=== PATIENT | female | born 1990 | race African-American/Black ===

== ENCOUNTER 2016-09-24 11:39 | Emergency (ER) | payer OTHER ==
[2016-09-24 11:59] VITALS: BMI 26.4
[2016-09-24] MEDS ORDERED: SODIUM CHLORIDE 0.9% 1000 ML INFUS.BAG IV ONE (13:13)
[2016-09-24] MEDS ORDERED: FOLIC ACID INJECTION - 1 MG, THIAMINE HCL 100 MG, MULTIVIT INJECTION ADULT 10 ML in SOD... IVPB ONE (13:18)
--- NOTE | 2016-09-24 13:23 | PDOC ---
History of Present Illness - General Chief Complaint: Lightheaded Stated Complaint: HEADACHE/DIZZY,13 WEEKS Time Seen by Provider: 09/24/16 12:15 - History of Present Illness Initial Comments: 09/24/16 13:15 CHIEF COMPLAINT: dizziness, headache HISTORY OF PRESENT ILLNESS: 26 yo F (LMP 06/23, 13 weeks preg) with hx of anemia presents to ED with dizziness and headache. Patient states she has had an intermittent headache for the last 4 days, "but the dizziness is always there." She reports that she had her blood drawn at the [facility] office and was told that her "blood was really low." She also reports nausea and vomiting in the mornings for the last month. She denies any vaginal bleeding or abnormal discharge, denies any abdominal pain or cramping. No recent travel or sick contacts. PAST MEDICAL HISTORY: Denies past medical history FAMILY HISTORY: Denies SOCIAL HISTORY:Denies tobacco, alcohol, illicit drug use. SURGICAL HISTORY: Denies ALLERGIES: No known drug allergies REVIEW OF SYSTEMS General/Constitutional: Denies fever or chills. Denies weakness, weight change. HEENT: Denies change in vision. Denies ear pain or discharge. Denies sore throat. Cardiovascular: Denies chest pain or shortness of breath. Respiratory: Denies cough, wheezing, or hemoptysis. Gastrointestinal: Denies nausea, vomiting, diarrhea or constipation. Denies rectal bleeding. Genitourinary: Denies dysuria, frequency, or change in urination. Musculoskeletal: Denies joint or muscle swelling or pain. Denies neck or back pain. Skin and breasts: Denies rash or easy bruising. Neurologic: "Dizziness" x 4 days. Denies loss of consciousness, or loss of sensation. PHYSICAL EXAM General Appearance: Well-appearing, appropriately dressed. No apparent distress , no intoxication. HEENT: EOMI, PERRLA, normal ENT inspection, normal voice, TMs normal, pharynx normal. No conjunctival pallor. No photophobia, scleral icterus. Respiratory/Chest: Lungs CTAB. Cardiovascular: RRR. S1, S2. Gastrointestinal/Abdominal: Normal bowel sounds. Abdomen soft, non-distended. No tenderness or rebound tenderness. No organomegaly, pulsatile mass, guarding , hernia, hepatomegaly, splenomegaly. Musculoskeletal/Extremities: Normal inspection. FROM of all extremities, normal capillary refill. Pelvis Stable. No CVA tenderness. No tenderness to extremities, pedal edema, swelling, erythema or deformity. Integumentary: Appropriate color, dry, warm. 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 Fully oriented, alert. Appropriate mood/affect. Motor strength 5/5. No appreciable EOM palsy, facial droop or sensory deficit. Past History - Past Medical History Allergies/Adverse Reactions: Allergies Allergy/AdvReac Type Severity Reaction Status Date / Time No Known Allergies Allergy Verified 09/24/16 11:56 Home Medications: Ambulatory Orders Doxylamine/Pyridoxine HCl [Johnathan Vasquez 10-10 mg Tablet] 1 each PO HS #30 tablet. 09/24/16 Anemia: Yes (TRANSFUSIONS X3) - Psycho/Social/Smoking Cessation Hx Suicidal Ideation: No Smoking History: Never smoked *Physical Exam - Vital Signs Last Vital Signs Temp Pulse Resp BP Pulse Ox 97.7 F 93 H 19 129/76 99 09/24/16 11:56 09/24/16 11:56 09/24/16 11:56 09/24/16 11:56 09/24/16 11:56 ED Treatment Course - LABORATORY CBC & Chemistry Diagram: 09/24/16 13:30 09/24/16 13:30 - RADIOLOGY Radiology Studies Ordered: Category Date Time Status TRANSVAGINAL US PREG [US] Stat Ultrasound 09/24/16 13:14 Ordered Medical Decision Making - Medical Decision Making 09/24/16 14:58 26 yo F (LMP 1, 13 weeks preg) with hx of anemia presents to ED with dizziness and headache. -CBC, CMP, beta hCG, T&S -TV US -Normal saline, banana bag Labs: Hg 9.2, otherwise unremarkable. Beta hCG 26k+ TV U/S results: Advised patient to f/u with OB by the end of the week, referral provided. Advised patient of signs and symptoms for return to ER; patient verbalized understanding and agrees to plan. 09/24/16 14:59 *DC/Admit/Observation/Transfer Diagnosis at time of Disposition: Dizziness Anemia Qualifiers: Anemia type: unspecified type Qualified Code(s): D64.9 - Anemia, unspecified - Discharge Dispostion Disposition: HOME Condition at time of disposition: Stable Admit: No - Prescriptions Prescriptions: Doxylamine/Pyridoxine HCl [Johnathan Vasquez 10-10 mg Tablet] 1 each PO HS #30 tablet.dr - Referrals Referrals: Bernard Mcdonald MD [Staff Physician] - - Patient Instructions Printed Discharge Instructions: DI for Hyperemesis Gravidarum, Managing Symptoms of Additional Instructions: Please take medication as prescribed for your nausea and vomiting. Please follow up with OBGYN by the end of THIS WEEK (referral provided). If you experience any vaginal bleeding, abnormal vaginal discharge, abdominal pain or cramping, or any new or worsening symptoms, please return to the ER.
--- NOTE | 2016-09-24 13:33 | PDOC ---
[id number] 09/24/16 11:56 09/24/16 11:56 09/24/16 11:56 09/24/16 11:56 09/24/16 11:56 ED Treatment Course - LABORATORY CBC & Chemistry Diagram: 09/24/16 13:30 09/24/16 13:30 Medical Decision Making - Medical Decision Making 09/24/16 13:32 Pt seen by the Advanced Practice Provider under my direct supervision Ancillary studies reviewed I agree with plan as outlined by the Advanced Practice Provider SHAHEED Henry *DC/Admit/Observation/Transfer Diagnosis at time of Disposition: Dizziness, Anemia - Discharge Dispostion Disposition: HOME - Prescriptions Prescriptions: Doxylamine/Pyridoxine HCl [Johnathan Vasquez 10-10 mg Tablet] 1 each PO HS #30 tablet.dr - Referrals Referrals: Bernard Mcdonald MD [Staff Physician] - - Patient Instructions Printed Discharge Instructions: Managing Symptoms of , DI for Hyperemesis Gravidarum Additional Instructions: Please take medication as prescribed for your nausea and vomiting. Please follow up with OBGYN by the end of THIS WEEK (referral provided). If you experience any vaginal bleeding, abnormal vaginal discharge, abdominal pain or cramping, or any new or worsening symptoms, please return to the ER.
[2016-09-24 13:41] LABS: BASOPHIL 0.3 % (0-2.0); EOSINOPHIL 0.4 % (0-4.5); MCH 27.4 pg (25.7-33.7); MCHC 34.7 g/dl (32.0-36.0); MEAN CELL VOLUME 79.1 fl (80-96); NEUTROPHILS 82.5 % (42.8-82.8); PLATELET COUNT 172 K/MM3 (134-434); RDW 21.4 % (11.6-15.6); WHITE BLOOD COUNT 6.7 K/mm3 (4.0-10.0)
[2016-09-24 14:04] LABS: ALBUMIN 4.1 g/dl (3.4-5.0); ANION GAP 12 (8-16); CO2 22 mmol/L (21-32); CREATININE 0.5 mg/dL (0.55-1.02); GLUCOSE,RANDOM 84 mg/dL (74-106); SGOT/AST 10 U/L (15-37); SGPT/ALT 13 U/L (12-78)
[2016-09-24 14:21] LABS: ALK PHOS 30 U/L (45-117); TOT PROT 7.2 g/dl (6.4-8.2)
[2016-09-24 14:49] LABS: URINE APPEARANCE CLEAR; URINE BILIRUBIN NEGATIVE (NEGATIVE); URINE BLOOD NEGATIVE (NEGATIVE); URINE COLOR AMBER; URINE GLUCOSE (UA) NEGATIVE (NEGATIVE); URINE KETONE NEGATIVE (NEGATIVE); URINE LEUK ESTERASE NEGATIVE (NEGATIVE); URINE NITRITE NEGATIVE (NEGATIVE); URINE PROTEIN NEGATIVE (NEGATIVE); URINE UROBILINOGEN 4.0 E.U/dl E.U./dl (0.2-1.0)
[2016-09-24 15:51] LABS: MICROCYTOSIS 3+; POLYCHROMASIA 2+
[2016-09-24 15:52] LABS: ANISOCYTOSIS 3+
[2016-09-24 17:16] VITALS: BP 119/51; PULSE 81; TEMP 98.2
== END 2016-09-24 16:55 | disposition home or self-care (01) ==
LOC: JER 11:39
PROC: 3E033GC Introduction of Other Therapeutic Substance into Peripheral Vein, Percutaneous Approach (ICD-10-PCS; principal; 2016-09-24)
DX: O99.011 Anemia complicating pregnancy, first trimester (principal); D64.89 Other specified anemias; Z3A.13 13 weeks gestation of pregnancy
CPT/HCPCS: 36415; 76815-TC; 80053; 81003; 84702; 85025; 86850; 86900; 86901; 87086; 96365; 96366; 99282-25

== ENCOUNTER 2017-07-30 13:25 | Inpatient (IN) | payer OTHER ==
[2017-07-30 13:36] VITALS: BMI 27.3
[2017-07-30] MEDS ORDERED: SODIUM CHLORIDE 0.9% 1000 ML INFUS.BAG IV ONE (14:06)
[2017-07-30] MEDS ORDERED: ONDANSETRON 4 MG/2 ML VIAL IVPUSH ONE (14:06)
--- NOTE | 2017-07-30 14:51 | PDOC ---
History of Present Illness - General History Source: Patient Exam Limitations: No Limitations - History of Present Illness Initial Comments: 07/30/17 15:10 The patient is a 27-year-old female with a significant past medical history of anemia, who presents to the emergency department with increasing weakness, nausea, vomiting, diarrhea, and cough for 2 days. She reports 6 episodes of non- bloody vomiting over the last 2 days, and 3 episodes of non-bloody diarrhea today. She also notes associated congestion and headache. She states she feels lightheaded when she stands up, and notes left upper quadrant abdominal pain with strenuous activities. She states her symptoms are worsened in the heat, and notes that warm compresses on her head alleviate some of her symptoms. She states she has not been taking her iron supplements. She denies receiving the flu shot this year. The patient denies chest pain, shortness of breath, and dizziness. The patient denies fever, chills, and constipation. The patient denies dysuria, frequency, urgency and hematuria. LMP: 06/13 - 06/17 (patient states this is normal) Allergies: NKDA Past Surgical History: None reported Family PMHx: anemia (paternal side) <Arianna Mancera - Last Filed: 07/30/17 15:10> <Ford Haley - Last Filed: 07/30/17 19:15> - General Chief Complaint: Weakness Stated Complaint: WEAKNESS, HEADACHES, CONGESTED Time Seen by Provider: 07/30/17 13:42 Past History <Arianna Mancera - Last Filed: 07/30/17 15:10> - Past Medical History Anemia: Yes (TRANSFUSIONS X3) COPD: No - Reproductive History (#): 4 Para: 1 Therapeutic (s) & number: Yes (1) Spontaneous : 1 - Immunization History Immunization Up to Date: Yes - Suicide/Smoking/Psychosocial Hx Smoking History: Never smoked Have you smoked in the past 12 months: No Information on smoking cessation initiated: No Hx Alcohol Use: No Drug/Substance Use Hx: Yes (Marijuana) Substance Use Type: None <Ford Haley - Last Filed: 07/30/17 19:15> - Past Medical History Allergies/Adverse Reactions: Allergies Allergy/AdvReac Type Severity Reaction Status Date / Time No Known Allergies Allergy Verified 07/30/17 13:27 Home Medications: Ambulatory Orders Doxylamine Succinate/Vit B6 [Johnathan Vasquez 10-10 mg Tablet] 1 each PO HS #30 tablet. 09/24/16 Review of Systems - Review of Systems Able to Perform ROS?: Yes Comments:: 07/30/17 15:10 A complete review of 10 out of 10 review of systems is taken and is negative apart from what is previously mentioned below and in the HPI. <Arianna Mancera - Last Filed: 07/30/17 15:10> *Physical Exam - Vital Signs Last Vital Signs Temp Pulse Resp BP Pulse Ox 98.2 F 87 17 136/62 100 07/30/17 13:27 07/30/17 13:27 07/30/17 13:27 07/30/17 13:27 07/30/17 13:27 - Physical Exam Comments: 07/30/17 15:10 Vitals: Triage Vital signs reviewed General Appearance: no acute distress, well nourished well developed, Head: Atraumatic, normocephalic Eyes: Pupils equal reactive round, extraocular movement intact Nose: Nares patent bilaterally; (+) congestion Throat: (+) Posterior oropharynx erythematous, mucous membranes moist, Cardiac: Regular rate and rhythm, no murmurs, no rubs, no gallops, Lungs: Clear to auscultation bilateral, good air movement bilaterally, Abdomen: Soft, nondistended, normal bowel sounds, nontender to palpation Extremities: Full range of motion to all extremities, no cyanosis, clubbing, or edema Psych: normal mood, normal affect <Arianna Mancera - Last Filed: 07/30/17 15:10> - Vital Signs Last Vital Signs Temp Pulse Resp BP Pulse Ox 98.2 F 87 17 136/62 100 07/30/17 13:27 07/30/17 13:27 07/30/17 13:27 07/30/17 13:27 07/30/17 13:27 <Ford Haley - Last Filed: 07/30/17 19:15> ED Treatment Course - LABORATORY CBC & Chemistry Diagram: 07/30/17 14:45 07/30/17 14:45 - Medications Given in the ED: ED Medications Discontinued Medications Generic Name Dose Route Start Last Admin Trade Name Freq PRN Reason Stop Dose Admin Sodium Chloride 1,000 ml 07/30/17 14:06 07/30/17 14:52 Normal Saline - IV 07/30/17 14:07 1,000 ml ONCE ONE Administration <Arianna Mancera - Last Filed: 07/30/17 15:10> - LABORATORY CBC & Chemistry Diagram: 07/30/17 14:45 07/30/17 14:45 <Ford Haley - Last Filed: 07/30/17 19:15> Medical Decision Making - Medical Decision Making 27 years old past medical history significant for anemia not on iron supplementation presents to the ED with weakness shortness of breath near syncope as well as nausea vomiting diarrhea We'll check labs hydrate Zofran test and reassess Reevaluation positive urine hCG quantitative added on patient inform the results Patient noted to be anemic to 7.2 given symptomatic anemia we will transfuse 2 units and observe for further management fecal occult blood sent to lab. <Ford Haley - Last Filed: 07/30/17 19:15> *DC/Admit/Observation/Transfer - Attestations Scribe Attestion: 07/30/17 15:13 Documentation prepared by Arianna Mancera, acting as emergency medical service coordinator for Ford Haley MD, /DO. <Arianna Mancera - Last Filed: 07/30/17 15:10> - Discharge Dispostion Admit: Yes <Ford Haley - Last Filed: 07/30/17 19:15> Diagnosis at time of Disposition: Anemia Qualifiers: Anemia type: unspecified type Qualified Code(s): D64.9 - Anemia, unspecified
[2017-07-30 15:08] LABS: BASO % 0.4 % (0-2.0); EOS % 0.8 % (0-4.5); HEMATOCRIT 19.8 % (32.4-45.2); HEMOGLOBIN 7.2 GM/dL (10.7-15.3); MCH 26.3 pg (25.7-33.7); MCHC 36.4 g/dl (32.0-36.0); MEAN CELL VOLUME 72.2 fl (80-96); MEAN PLT VOLUME 8.4 fl (7.5-11.1); NEUT % 73.8 % (42.8-82.8); PLATELET COUNT 208 K/MM3 (134-434); RBC 2.74 M/mm3 (3.60-5.2); RDW 22.2 % (11.6-15.6); WHITE BLOOD COUNT 4.5 K/mm3 (4.0-10.0)
[2017-07-30 15:20] LABS: ALBUMIN 4.3 g/dl (3.4-5.0); ANION GAP 8 (8-16); BILIRUBIN,TOTAL 2.8 mg/dL (0.2-1.0); BLOOD UREA NITROGEN 9 mg/dL (7-18); CALCIUM 8.6 mg/dL (8.5-10.1); CHLORIDE 105 mmol/L (98-107); CO2 25 mmol/L (21-32); CREATININE 0.5 mg/dL (0.55-1.02); GLUCOSE,RANDOM 80 mg/dL (74-106); POTASSIUM 3.7 mmol/L (3.5-5.1); SGOT/AST 11 U/L (15-37); SODIUM 138 mmol/L (136-145); TOT PROT 7.4 g/dl (6.4-8.2)
[2017-07-30 15:24] LABS: ALK PHOS 31 U/L (45-117); SGPT/ALT 9 U/L (12-78)
--- NOTE | 2017-07-30 18:40 | HP ---
CHIEF COMPLAINT: Symptomatic anemia PCP: None Child Development Specialist: Dr. Eugenio Adam, [facility] [phone] PLUMBING WAREHOUSE HELPER: [facility], [address] HISTORY OF PRESENT ILLNESS: 27 year-old female with a PMH significant for chronic anemia with h/o transfusions since age 20. Presented to the ED with weakness, nausea, vomiting, diarrhea x 2 days. Also reported chills and cough. Positive HCG in ED. She feels lightheaded when she stands up, and has pain in LLQ strenuous activities. Her manager clinical informatics is Dr. Eugenio Adam from the [facility]. She last saw him 3 years ago. She has not been taking her iron supplements. ER course was notable for: (1) NS x 1L; Zofran (2) Urine HCG qual positive (3) Beta HCG quant 2962 Recent Travel: No PAST MEDICAL HISTORY: Anemia (3-4 transfusions since age 20) PAST SURGICAL HISTORY: None reported Social History: Smoking: no Alcohol: no Drugs: no Family History: anemia on father's side Allergies No Known Allergies Allergy (Verified 07/30/17 13:27) HOME MEDICATIONS: Home Medications Medication Instructions Recorded Doxylamine Succinate/Vit B6 1 each PO HS #30 tablet. 09/24/16 [Johnathan Vasquez 10-10 mg Tablet] REVIEW OF SYSTEMS CONSTITUTIONAL: +chills several days ago +generalized weakness Absent: fever, diaphoresis, malaise, loss of appetite, weight change HEENT: Absent: rhinorrhea, nasal congestion, throat pain, throat swelling, difficulty swallowing, mouth swelling, ear pain, eye pain, visual changes CARDIOVASCULAR: Absent: chest pain, syncope, palpitations, irregular heart rate, lightheadedness , peripheral edema RESPIRATORY: +cough Absent: shortness of breath, dyspnea with exertion, orthopnea, wheezing, stridor , hemoptysis GASTROINTESTINAL: +nausea +vomiting +diarrhea Absent: abdominal pain, abdominal distension, constipation, melena, hematochezia GENITOURINARY: Absent: dysuria, frequency, urgency, hesitancy, hematuria, flank pain, genital pain MUSCULOSKELETAL: Absent: myalgia, arthralgia, joint swelling, back pain, neck pain SKIN: Absent: rash, itching, pallor HEMATOLOGIC/IMMUNOLOGIC: Absent: easy bleeding, easy bruising, lymphadenopathy, frequent infections ENDOCRINE: Absent: unexplained weight gain, unexplained weight loss, heat intolerance, cold intolerance NEUROLOGIC: Absent: headache, focal weakness or paresthesias, dizziness, unsteady gait, seizure, mental status changes, bladder or bowel incontinence PSYCHIATRIC: Absent: anxiety, depression, suicidal or homicidal ideation, hallucinations. PHYSICAL EXAMINATION Vital Signs - 24 hr 07/30/17 13:27 Temperature 98.2 F Pulse Rate 87 Respiratory 17 Rate Blood Pressure 136/62 O2 Sat by Pulse 100 Oximetry (%) GENERAL: Awake, alert, and fully oriented. Keeps eyes closed, one word answers. LUNGS: +cough; bibasilar rhochi HEART: Regular rate and rhythm, normal S1 and S2 without murmur, rub or gallop. ABDOMEN: Soft, nontender, not distended, normoactive bowel sounds, no guarding, no rebound, no masses MUSCULOSKELETAL: Normal range of motion at all joints. No bony deformities or tenderness. No CVA tenderness. UPPER EXTREMITIES: 2+ pulses, warm, well-perfused. No cyanosis. No clubbing. No peripheral edema. LOWER EXTREMITIES: 2+ pulses, warm, well-perfused. No calf tenderness. No peripheral edema. NEUROLOGICAL: Cranial nerves II-XII intact. Normal speech. Laboratory Results - last 24 hr 07/30/17 07/30/17 07/30/17 14:45 14:45 14:45 WBC 4.5 D RBC 2.74 L Hgb 7.2 L D Hct 19.8 L D MCV 72.2 L MCH 26.3 MCHC 36.4 H RDW 22.2 H Plt Count 208 D MPV 8.4 Neutrophils % 73.8 Lymphocytes % 19.0 D Monocytes % 6.0 D Eosinophils % 0.8 D Basophils % 0.4 Sodium 138 Potassium 3.7 Chloride 105 Carbon Dioxide 25 Anion Gap 8 BUN 9 Creatinine 0.5 L Creat Clearance w eGFR > 60 Random Glucose 80 Calcium 8.6 Total Bilirubin 2.8 H AST 11 L ALT 9 L Alkaline Phosphatase 31 L Total Protein 7.4 Albumin 4.3 Beta HCG, Quant Urine HCG, Qual Positive Stool Occult Blood 07/30/17 07/30/17 16:43 16:43 WBC RBC Hgb Hct MCV MCH MCHC RDW Plt Count MPV Neutrophils % Lymphocytes % Monocytes % Eosinophils % Basophils % Sodium Potassium Chloride Carbon Dioxide Anion Gap BUN Creatinine Creat Clearance w eGFR Random Glucose Calcium Total Bilirubin AST ALT Alkaline Phosphatase Total Protein Albumin Beta HCG, Quant 2962.0 Urine HCG, Qual Stool Occult Blood Negative ASSESSMENT/PLAN: 27 year-old female with a PMH significant for anemia. Placed on observation for symptomatic iron-deficiency anemia; . Iron-deficiency anemia --Hgb 7.2, baseline ~9; MCV 72.2 --transfuse 1U PRBC --ferrous sulfate BID --Urine HCG qual positive, Beta HCG quant 2962; LMP 06/13/17 --repeat HCG quant tomorrow --US ordered --start pre-obie vitamins --OB consult Left upper v. left lower quadrant pain --patient told ED provider she has LUQ pain, this provider LLQ pain --US spleen ordered Nausea, vomiting --has h/o hyperemesis in past --Reglan PRN --orthostatics --IV fluids Cough --subjective fever, cough, and rhonchi on exam --will start empiric augmentin and azithromycin --gentle IV fluids FEN Fluids: NS@50mL/hr Electrolytes: replete as indicated Nutrition: regular diet DVT prophylaxis: oob, ambulation Dispo: continues to require observation Visit type - Emergency Visit Emergency Visit: Yes ED Registration Date: 07/30/17 Care time: The patient presented to the Emergency Department on the above date and was hospitalized for further evaluation of their emergent condition. - New Patient This patient is new to me today: Yes Date on this admission: 07/31/17 - Critical Care Critical Care patient: No Hospitalist Screening - Colonoscopy Questionnaire Colonoscopy Questionnaire: Colonoscopy Questionnaire - Patient: 50 - 75 years old and never had a screening colonoscopy: No History of colon or rectal polyps, or CA: No History of IBD, Crohn's disease or UC: No History of abdominal radiation therapy as a child: No - Relative: 1 with colon or rectal CA, or polyps at age 60 or younger: Unknown Colon or rectal CA diagnosed at age 45 or younger: Unknown Multiple relatives with colon or rectal CA: Unknown - Outcome: Screening Result: Negative Screen
[2017-07-30] MEDS: SODIUM CHLORIDE 1,000 ML IV SCH (22:22)
[2017-07-30] MEDS: PRENATAL VITAMINS W/ FOLIC ACID TABLET (FP) PO SCH (22:23)
[2017-07-31] MEDS: SODIUM CHLORIDE 1,000 ML IV SCH (02:27)
[2017-07-31 08:28] LABS: BASO % 0.5 % (0-2.0); EOS % 1.2 % (0-4.5); HEMOGLOBIN 7.4 GM/dL (10.7-15.3); LYMPH % 32.2 % (8-40); MCH 27.2 pg (25.7-33.7); MCHC 36.9 g/dl (32.0-36.0); MEAN CELL VOLUME 73.7 fl (80-96); MEAN PLT VOLUME 8.4 fl (7.5-11.1); MONO % 6.5 % (3.8-10.2); NEUT % 59.6 % (42.8-82.8); PLATELET COUNT 187 K/MM3 (134-434); RBC 2.72 M/mm3 (3.60-5.2); RDW 21.7 % (11.6-15.6); WHITE BLOOD COUNT 5.2 K/mm3 (4.0-10.0)
[2017-07-31 08:51] LABS: ALBUMIN 3.8 g/dl (3.4-5.0); ALK PHOS 29 U/L (45-117); ANION GAP 10 (8-16); BILIRUBIN,TOTAL 2.8 mg/dL (0.2-1.0); BLOOD UREA NITROGEN 7 mg/dL (7-18); CALCIUM 8.1 mg/dL (8.5-10.1); CHLORIDE 106 mmol/L (98-107); CO2 21 mmol/L (21-32); CREATININE 0.4 mg/dL (0.55-1.02); GLUCOSE,RANDOM 80 mg/dL (74-106); POTASSIUM 3.3 mmol/L (3.5-5.1); SGOT/AST 7 U/L (15-37); SGPT/ALT 9 U/L (12-78); SODIUM 137 mmol/L (136-145); TOT PROT 6.7 g/dl (6.4-8.2)
[2017-07-31] MEDS ORDERED: PT OWN MED DRAWER 7, Y5N ONE (09:08)
[2017-07-31] MEDS: FERROUS SO4 325 MG TABLET (FP) PO SCH ×3 (09:13→18:41)
[2017-07-31] MEDS: PRENATAL VITAMINS W/ FOLIC ACID TABLET (FP) PO SCH (09:13)
[2017-07-31] MEDS ORDERED: AZITHROMYCIN 500 MG TABLET PO ONE (09:20)
--- NOTE | 2017-07-31 10:40 | PN ---
Physical Exam: SUBJECTIVE: Patient seen and examined. Feeling nauseous after iron pills. OBJECTIVE: Vital Signs Period Temp Pulse Resp BP Sys/Garg Pulse Ox Last 24 Hr 98.2 F-99 F 72-91 17-20 117-136/40-69 97-100 GENERAL: Awake, alert, and fully oriented. Keeps eyes closed, one word answers. LUNGS: +cough; bibasilar rhochi HEART: Regular rate and rhythm, normal S1 and S2 without murmur, rub or gallop. ABDOMEN: Soft, nontender, not distended, normoactive bowel sounds, no guarding, no rebound, no masses MUSCULOSKELETAL: Normal range of motion at all joints. No bony deformities or tenderness. No CVA tenderness. UPPER EXTREMITIES: 2+ pulses, warm, well-perfused. No cyanosis. No clubbing. No peripheral edema. LOWER EXTREMITIES: 2+ pulses, warm, well-perfused. No calf tenderness. No peripheral edema. NEUROLOGICAL: Cranial nerves II-XII intact. Normal speech. Laboratory Results - last 24 hr 07/30/17 07/30/17 07/30/17 14:45 14:45 14:45 WBC 4.5 D RBC 2.74 L Hgb 7.2 L D Hct 19.8 L D MCV 72.2 L MCH 26.3 MCHC 36.4 H RDW 22.2 H Plt Count 208 D MPV 8.4 Neutrophils % 73.8 Lymphocytes % 19.0 D Monocytes % 6.0 D Eosinophils % 0.8 D Basophils % 0.4 Sodium 138 Potassium 3.7 Chloride 105 Carbon Dioxide 25 Anion Gap 8 BUN 9 Creatinine 0.5 L Creat Clearance w eGFR > 60 Random Glucose 80 Calcium 8.6 Magnesium Total Bilirubin 2.8 H AST 11 L ALT 9 L Alkaline Phosphatase 31 L Total Protein 7.4 Albumin 4.3 Beta HCG, Quant Urine HCG, Qual Positive Stool Occult Blood Blood Type Antibody Screen Crossmatch 07/30/17 07/30/17 07/30/17 16:43 16:43 17:30 WBC RBC Hgb Hct MCV MCH MCHC RDW Plt Count MPV Neutrophils % Lymphocytes % Monocytes % Eosinophils % Basophils % Sodium Potassium Chloride Carbon Dioxide Anion Gap BUN Creatinine Creat Clearance w eGFR Random Glucose Calcium Magnesium Total Bilirubin AST ALT Alkaline Phosphatase Total Protein Albumin Beta HCG, Quant 2962.0 Urine HCG, Qual Stool Occult Blood Negative Blood Type A POSITIVE Antibody Screen Negative Crossmatch See Detail 07/30/17 07/31/17 07/31/17 Unknown 07:10 07:20 WBC 5.2 RBC 2.72 L Hgb 7.4 L Hct 20.0 L MCV 73.7 L MCH 27.2 MCHC 36.9 H RDW 21.7 H Plt Count 187 MPV 8.4 Neutrophils % 59.6 Lymphocytes % 32.2 D Monocytes % 6.5 Eosinophils % 1.2 Basophils % 0.5 Sodium 137 Potassium 3.3 L Chloride 106 Carbon Dioxide 21 Anion Gap 10 BUN 7 Creatinine 0.4 L Creat Clearance w eGFR > 60 Random Glucose 80 Calcium 8.1 L Magnesium 2.0 Total Bilirubin 2.8 H AST 7 L ALT 9 L Alkaline Phosphatase 29 L Total Protein 6.7 Albumin 3.8 Beta HCG, Quant Urine HCG, Qual Stool Occult Blood Blood Type Cancelled Antibody Screen Cancelled Crossmatch See Detail Active Medications Generic Name Dose Route Start Last Admin Trade Name Freq PRN Reason Stop Dose Admin Amoxicillin/Clavulanate Potassium 1 tab 07/31/17 17:30 Augmentin - 875mg Tablet PO 08/07/17 08:01 BID@0800,1730 CHEO Azithromycin 250 mg 08/01/17 10:00 Zithromax - PO 08/04/17 10:01 DAILY CHEO Ferrous Sulfate 325 mg 07/31/17 08:00 07/31/17 09:13 Feosol - PO 325 mg BIDWM CHEO Administration Sodium Chloride 1,000 mls @ 50 mls/hr 07/30/17 21:00 07/31/17 02:27 Normal Saline - IV 07/31/17 20:56 50 mls/hr ASDIR CHEO Administration Multivit/Folic Acid/Iron 1 tab 07/30/17 20:45 07/31/17 09:13 Vitamins (Sjr) - PO 1 tab DAILY CHEO Administration ASSESSMENT/PLAN: 7.2-->7.4 after one unit 2 units ordered; Lasix 40 IVP in between heme consult Dr. Alston US: splenomegaly US pending OB consult cough chills no CXR done empiric augmentin and azithromycin 27 year-old female with a PMH significant for anemia. Placed on observation for symptomatic iron-deficiency anemia; . Iron-deficiency anemia --Hgb 7.2 on admission, baseline ~9; MCV 72.2 --US: moderate splenomegaly --transfused 1U PRBC overnight with poor response, Hgb 7.4 --transfuse 2 more units --anemia panel ordered --ferrous sulfate BID --Heme Dr. Alston will follow --Urine HCG qual positive, beta HCG quant 2962-->3198; LMP 06/13/17 --US ordered --start pre- vitamins --OB consult Left upper v. left lower quadrant pain --patient told ED provider she has LUQ pain, this provider LLQ pain --US spleen ordered Nausea, vomiting --has h/o hyperemesis in past --Reglan PRN --orthostatics --IV fluids Cough --subjective fever, cough, and rhonchi on exam --will start empiric augmentin and azithromycin --gentle IV fluids FEN Fluids: NS@50mL/hr Electrolytes: replete as indicated Nutrition: regular diet DVT prophylaxis: oob, ambulation Dispo: continues to require observation Visit type - Emergency Visit Emergency Visit: Yes ED Registration Date: 07/30/17 Care time: The patient presented to the Emergency Department on the above date and was hospitalized for further evaluation of their emergent condition. - New Patient This patient is new to me today: No - Critical Care Critical Care patient: No
[2017-07-31] MEDS ORDERED: AZITHROMYCIN 250 MG TABLET PO ONE (11:45)
[2017-07-31 14:14] LABS: LDH 218 U/L (84-246)
[2017-07-31] MEDS: AMOX TR/POT CLAV 875MG/125MG TABLETS (FP) PO SCH ×2 (18:37→18:41)
[2017-07-31] MEDS ORDERED: FUROSEMIDE 40 MG/4 ML INJECTABLE VIAL IVPUSH ONE (22:00)
[2017-08-01] MEDS ORDERED: FUROSEMIDE 40 MG/4 ML INJECTABLE VIAL IVPUSH ONE (01:15)
[2017-08-01 07:33] VITALS: BP 130/54; PULSE 69; TEMP 98.5
[2017-08-01 07:39] LABS: BASO % 0.6 % (0-2.0); HEMATOCRIT 28.1 % (32.4-45.2); HEMOGLOBIN 10.3 GM/dL (10.7-15.3); LYMPH % 27.6 % (8-40); MCH 27.9 pg (25.7-33.7); MCHC 36.8 g/dl (32.0-36.0); MEAN CELL VOLUME 75.6 fl (80-96); MEAN PLT VOLUME 8.4 fl (7.5-11.1); MONO % 5.3 % (3.8-10.2); NEUT % 65.5 % (42.8-82.8); PLATELET COUNT 219 K/MM3 (134-434); RBC 3.71 M/mm3 (3.60-5.2); RDW 21.6 % (11.6-15.6); WHITE BLOOD COUNT 7.6 K/mm3 (4.0-10.0)
--- NOTE | 2017-08-01 07:42 | DS ---
Physical Examination Vital Signs: Vital Signs Temperature 98.5 F 08/01/17 06:00 Pulse Rate 69 08/01/17 06:00 Respiratory Rate 20 08/01/17 06:00 Blood Pressure 130/54 08/01/17 06:00 O2 Sat by Pulse Oximetry (%) 100 07/31/17 20:00 Discharge Summary Reason For Visit: ANEMIA Current Active Problems Anemia (Acute) Hospital Course: Patient MITZI Reports she is going to go to [facility] because that is where her "doctors are" - Instructions Disposition: AGAINST MEDICAL ADVICE - Home Medications Comprehensive Discharge Medication List: Ambulatory Orders Doxylamine Succinate/Vit B6 [Johnathan Vasquez 10-10 mg Tablet] 1 each PO HS #30 tablet. 09/24/16
[2017-08-01 07:55] LABS: ALBUMIN 4.5 g/dl (3.4-5.0); ANION GAP 13 (8-16); BILIRUBIN,TOTAL 4.7 mg/dL (0.2-1.0); BLOOD UREA NITROGEN 10 mg/dL (7-18); CALCIUM 9.1 mg/dL (8.5-10.1); CHLORIDE 101 mmol/L (98-107); CO2 23 mmol/L (21-32); CREATININE 0.5 mg/dL (0.55-1.02); GLUCOSE,RANDOM 83 mg/dL (74-106); MAGNESIUM 2.3 mg/dL (1.8-2.4); POTASSIUM 3.1 mmol/L (3.5-5.1); SGOT/AST 14 U/L (15-37); SGPT/ALT 15 U/L (12-78); SODIUM 137 mmol/L (136-145)
[2017-08-01 07:56] LABS: ALK PHOS 34 U/L (45-117)
[2017-08-01] MEDS ORDERED: AZITHROMYCIN 250 MG TABLET PO SCH (10:00)
[2017-08-02 00:07] LABS: SERUM IRON SATURATION 49 % (15-55); TOTAL IRON BINDING CAPACITY 208 ug/dL (250-450); UIBC 107 ug/dL (131-425)
== END 2017-08-01 08:13 | disposition left against medical advice (07) | DRG 566 ==
LOC: JER 13:25 → JERBED 16:54 → J5S 19:46 → OBSVTOIN 07-31 15:28
PROVIDERS: ADMIT Internal Medicine; ATTEND Registered Nurse
PROC: 30233H1 Transfusion of Nonautologous Whole Blood into Peripheral Vein, Percutaneous Approach (ICD-10-PCS; principal; 2017-07-30)
DX: O99.011 Anemia complicating pregnancy, first trimester (principal); D50.9 Iron deficiency anemia, unspecified; Z3A.01 Less than 8 weeks gestation of pregnancy
CPT/HCPCS: 36415; 36430; 76705-TC; 76815-TC; 80053; 82272; 82607; 82728; 82746; 83010; 83540; 83550; 83615; 83735; 84702; 84703; 85025; 85044; 86850; 86900; 86901; 86922; 99283-25; G0378; J7030; P9038; P9058

== ENCOUNTER 2024-03-11 09:24 | Emergency (ER) | payer OTHER ==
[2024-03-11 09:30] VITALS: BP 148/64; PULSE 80; RESP 18; TEMP 97.3; BMI 30.1
[2024-03-11] MEDS ORDERED: ACETAMINOPHEN 500 MG TABLET (FP) ONE (11:09)
[2024-03-11] MEDS ORDERED: IBUPROFEN 400 MG TABLET (FP) PO ONE (11:09)
[2024-03-11] MEDS: ACETAMINOPHEN 500 MG TABLET (FP) PO ONE (11:12)
[2024-03-11] MEDS: IBUPROFEN 400 MG TABLET (FP) PO ONE (11:12)
== END 2024-03-11 16:07 | disposition home or self-care (01) ==
LOC: JERFT 09:24
DX: S83.92XA Sprain of unspecified site of left knee, initial encounter (principal); X50.1XXA Overexertion from prolonged static or awkward postures, initial encounter; Y92.009 Unspecified place in unspecified non-institutional (private) residence as the place of occurrence of the external cause
CPT/HCPCS: 73562-TC-LT-FY; 99283-25

== ENCOUNTER 2024-07-07 17:16 | Emergency (ER) | payer OTHER ==
[2024-07-07 17:26] VITALS: BMI 31.8
[2024-07-07] MEDS ORDERED: ACETAMINOPHEN INJECTION 100 ML ONE (18:34)
[2024-07-07 18:38] LABS: BASO % 0.4 % (0-2.0); EOS % 0.9 % (0-4.5); HEMATOCRIT 19.8 % (32.4-45.2); LYMPH % 17.8 % (8-40); MEAN CELL VOLUME 67.6 fl (80-96); MEAN PLT VOLUME 7.9 fl (7.5-11.1); MONO % 4.8 % (3.8-10.2); NEUT % 76.1 % (42.8-82.8); PLATELET COUNT 195 10^3/uL (134-434); RBC 2.93 M/mm3 (3.60-5.2); RDW 23.5 % (11.6-15.6); WHITE BLOOD COUNT 3.5 K/mm3 (4.0-10.0)
[2024-07-07] MEDS: SODIUM CHLORIDE 0.9% 500 ML INFUS.BAG IV ONE (18:40)
[2024-07-07] MEDS: ACETAMINOPHEN 1000 MG/100 ML BAG IVPB ONE (18:40)
[2024-07-07 18:41] LABS: HEMOGLOBIN 6.7 GM/dL (10.7-15.3)
[2024-07-07 19:09] LABS: POTASSIUM 3.8 mmol/L (3.5-5.1)
[2024-07-07 19:11] LABS: CALCIUM 8.9 mg/dL (8.5-10.1)
[2024-07-07 19:12] LABS: ALBUMIN 4.3 g/dl (3.4-5.0); BLOOD UREA NITROGEN 12.2 mg/dL (7-18)
[2024-07-07 19:15] LABS: CREATININE 0.5 mg/dL (0.55-1.3)
[2024-07-07 19:17] LABS: BILIRUBIN,TOTAL 3.9 mg/dL (0.2-1); TOT PROT 7.7 g/dl (6.4-8.2)
[2024-07-07 20:02] LABS: ANISOCYTOSIS 3+; MACROCYTOSIS 0; OVALOCYTE 1+
[2024-07-07 23:27] VITALS: BP 125/72; PULSE 75; RESP 18; TEMP 98.9
== END 2024-07-08 00:11 | disposition home or self-care (01) ==
LOC: JERFT 17:16 → JER 17:16
PROC: 3E033NZ Introduction of Analgesics, Hypnotics, Sedatives into Peripheral Vein, Percutaneous Approach (ICD-10-PCS; principal; 2024-07-07)
DX: D64.9 Anemia, unspecified (principal); R42 Dizziness and giddiness; B34.9 Viral infection, unspecified; R51.9 Headache, unspecified; R05.9 Cough, unspecified; R11.10 Vomiting, unspecified; R09.81 Nasal congestion; M79.10 Myalgia, unspecified site; R53.81 Other malaise; Z20.822 Contact with and (suspected) exposure to COVID-19
CPT/HCPCS: 0241U-QW; 36415; 36430; 80053; 83615; 85025; 86850; 86900; 86901; 86922; 96374; 99285-25; J0131; P9058